=== PATIENT | female | born 1960 | race Two or more races ===

== ENCOUNTER 2017-12-18 20:58 | Emergency (ER) | payer SELFPAY ==
--- NOTE | 2017-12-18 21:10 | EDM.PDOC ---
ED HPI GENERAL MEDICAL PROBLEM - General Stated Complaint: PAIN IN HER LOWER EXTREMIDIES Time Seen by Provider: 12/18/17 21:09 Source of Information: Reports: Patient History Limitations: Reports: No Limitations - History of Present Illness INITIAL COMMENTS - FREE TEXT/NARRATIVE: HISTORY AND PHYSICAL: History of present illness: 57-year-old English only speaking female presenting in the emergency department with chief complaint of feeling a lesion when she bears down in her vagina with past medical history of 4 lighters. 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 Patient states that she was in the shower and when she placed her finger in her vagina she felt like something was coming out. She reports no pain or bleeding with this. She also states that at work she carries a large amount of weight on her back and it causes exertion which also causes this protrusion in her vagina. Otherwise, she has no significant symptoms. She does admit to some mild dysuria with urination but no hematuria or urgency. She does not smoke or drink alcohol. She does have 4 children. She has a history of an appendectomy when she was a child but no other abdominal surgery. She denies any bloody stool, dark tarry stool, or pain with defecation. Patient currently denies any chest pain, palpitations, shortness of breath, syncopal episodes, or focal neurologic deficits. Review of systems: As per history of present illness and below otherwise all systems reviewed and negative. Past medical history: As per history of present illness and as reviewed below otherwise noncontributory. Surgical history: As per history of present illness and as reviewed below otherwise noncontributory. Social history: No reported history of drug or alcohol abuse. Family history: As per history of present illness and as reviewed below otherwise noncontributory. Physical exam: HEENT: Atraumatic, normocephalic, pupils reactive, negative for conjunctival pallor or scleral icterus, mucous membranes moist, throat clear, neck supple, nontender, trachea midline. Lungs: Clear to auscultation, breath sounds equal bilaterally, chest nontender. Heart: S1S2, regular, negative for clicks, rubs, or JVD. Abdomen: Soft, nondistended, nontender. Negative for masses or hepatosplenomegaly. Negative for costovertebral tenderness. Pelvis: Stable nontender. Genitourinary: Observed vaginal prolapse with bearing down. No other abnormalities noted Rectal: Deferred. Extremities: Atraumatic, negative for cords or calf pain. Neurovascular unremarkable. Neuro: Awake, alert, oriented. Cranial nerves II through XII unremarkable. Cerebellum unremarkable. Motor and sensory unremarkable throughout. Exam nonfocal. Diagnostics: UA/UC, Pelvic exam Therapeutics: Bactrim DS PO BID x 5 days Impression: Vaginal prolapse Acute cystitis Plan: As above on exam patient had vaginal prolapse on bearing down. No other abnormalities found on pelvic exam. I did talk to Dr. Dr. Gaytan, BUSINESS INSURANCE AGENT, who will see the patient in her clinic at [facility]. They should call tomorrow. Patient also was found to have an acute UTI for which patient was placed on Bactrim. They were instructed to follow-up with BUSINESS INSURANCE AGENT as well as return to emergency department if any new or worsening symptoms. Definitive disposition and diagnosis as appropriate pending reevaluation and review of above. - Related Data Allergies Allergy/AdvReac Type Severity Reaction Status Date / Time Penicillins Allergy Rash Verified 12/18/17 21:20 Home Meds: Home Meds . [No Known Home Meds] 12/18/17 [History] ED ROS GENERAL - Review of Systems Review Of Systems: ROS reveals no pertinent complaints other than HPI. ED EXAM, GENERAL - Physical Exam Exam: See Below Course - Vital Signs Last Recorded V/S: Last Vital Signs Temp 97.4 F 12/18/17 21:16 Pulse 100 12/18/17 21:16 Resp 16 12/18/17 21:16 BP 151/78 H 12/18/17 21:16 Pulse Ox 97 12/18/17 21:16 - Orders/Labs/Meds Orders: Active Orders 24 hr Category Date Time Status CULTURE URINE [RM] Stat Lab 12/18/17 21:25 Received UA W/MICROSCOPIC [URIN] Stat Lab 12/18/17 21:25 Ordered Labs: Laboratory Tests 12/18/17 Range/Units 21:25 Urine Color YELLOW Urine Appearance CLEAR Urine pH 6.0 (5.0-8.0) Ur Specific [place] 1.010 (1.001-1.035) Urine Protein NEGATIVE (NEGATIVE) mg/dL Urine Glucose (UA) NEGATIVE (NEGATIVE) mg/dL Urine Ketones NEGATIVE (NEGATIVE) mg/dL Urine Occult Blood NEGATIVE (NEGATIVE) Urine Nitrite NEGATIVE (NEGATIVE) Urine Bilirubin NEGATIVE (NEGATIVE) Urine Urobilinogen 0.2 (<2.0) EU/dL Ur Leukocyte Esterase SMALL (NEGATIVE) Urine RBC 0-2 (0-2/HPF) Urine WBC 2-6 (0-5/HPF) Ur Epithelial Cells OCCASIONAL (NONE-FEW) Urine Bacteria FEW (NEGATIVE) Departure - Departure Time of Disposition: 22:09 Disposition: Home, Self-Care 01 Condition: Good Clinical Impression: Vaginal prolapse, Acute cystitis without hematuria - Discharge Information Referrals: PCP,None [Primary Care Provider] - Additional Instructions: My general discharge The following information is given to patients seen in the emergency department who are being discharged to home. This information is to outline your options for follow-up care. We provide all patients seen in our emergency department with a follow-up referral. The need for follow-up, as well as the timing and circumstances, are variable depending upon the specifics of your emergency department visit. If you don't have a primary care physician on staff, we will provide you with a referral. We always advise you to contact your personal physician following an emergency department visit to inform them of the circumstance of the visit and for follow-up with them and/or the need for any referrals to a consulting specialist. The emergency department will also refer you to a specialist when appropriate. This referral assures that you have the opportunity for follow-up care with a specialist. All of these measure are taken in an effort to provide you with optimal care, which includes your follow-up. Under all circumstances we always encourage you to contact your private physician who remains a resource for coordinating your care. When calling for follow-up care, please make the office aware that this follow-up is from your recent emergency room visit. If for any reason you are refused follow-up, please contact the [facility] Emergency Department at and asked to speak to the emergency department charge nurse. [facility] [address] [place] [id number] Please call the number above tomorrow morning to see in [employer] INSURANCE AGENT, Dr. Gaytan, who has been notified of you during your visit and will see you in the clinic. Take antibiotics as prescribed for your acute urinary tract infection. Return to ED if any new or worsening symptoms. - My Orders Last 24 Hours: My Active Orders 12/18/17 21:25 CULTURE URINE [RM] Stat UA W/MICROSCOPIC [URIN] Stat - Assessment/Plan Last 24 Hours: My Active Orders 12/18/17 21:25 CULTURE URINE [RM] Stat UA W/MICROSCOPIC [URIN] Stat
== END 2017-12-18 22:25 | disposition home or self-care (01) ==
LOC: MW.ED 20:58
DX: N81.10 Cystocele, unspecified (principal); N30.00 Acute cystitis without hematuria; Z88.0 Allergy status to penicillin; Z90.49 Acquired absence of other specified parts of digestive tract
CPT/HCPCS: 81001; 87086; 99282; 99283